=== PATIENT | female | born 1975 | race Caucasian/White ===

== ENCOUNTER → 2019-08-06 09:17 | Outpatient (BNVA) | payer MEDICAID, SELFPAY | PROVIDERS: Family Provider Nurse Practitioner; PCP Nurse Practitioner; Visit Provider Nurse Practitioner | DX: E88.81 Metabolic syndrome and other insulin resistance (principal); F41.8 Other specified anxiety disorders | CPT/HCPCS: 80053; 80061 ==

== ENCOUNTER → 2019-12-02 16:21 | Outpatient (BNVA) | payer MEDICAID, SELFPAY | PROVIDERS: Family Provider Nurse Practitioner; PCP Nurse Practitioner; Visit Provider Nurse Practitioner | DX: E88.81 Metabolic syndrome and other insulin resistance (principal); E66.01 Morbid (severe) obesity due to excess calories; E55.9 Vitamin D deficiency, unspecified | CPT/HCPCS: 80053; 80061; 81000; 84443; 85025 ==

== ENCOUNTER 2020-02-02 16:43 | Emergency (ER) | payer MEDICAID, SELFPAY ==
[2020-02-02 16:44] VITALS: BP 110/83; PULSE 79; RESP 18; TEMP 36.5; O2SAT 98; BMI 49.4
--- NOTE | 2020-02-02 16:44 | W.ED.GENADLT ---
HPI - General Adult General: Chief complaint: General Medical Stated complaint: POSSIBLE SEIZURE Time Seen by Provider: 02/02/20 16:44 Source: patient Mode of arrival: ambulatory Limitations: no limitations History of Present Illness: HPI narrative: Glenda is a 44-year-old female who was at home taking a shower when she was getting out and felt hot and lightheaded and then went down to the ground. She does not remember any preceding chest pain, shortness of breath, back pain or abdominal pain. The patient has a history of seizure disorder but it is been so long since she is had a seizure she does not take any medication. The patient was incontinent of stool but did not bite her tongue. She denies any injuries from that fall except for a dull headache. She denies any other complaints or concerns and feels back to normal at this time. Associated symptoms: Deny chest pain, dyspnea, headache(s), nausea, rash, palpitations, syncope or vomiting Review of Systems Const: Denies: fever(s) Eyes: Denies: change in vision ENMT: Denies: throat pain Card: Denies: chest pain, palpitations, syncope, pre-syncope or dyspnea on exertion Resp: Denies: dyspnea, productive cough or non-productive cough GI: Denies: abdominal pain, nausea, vomiting or diarrhea : Denies: flank pain, dysuria, urinary frequency or urinary urgency Musc: Denies: neck pain, back pain or extremity pain Skin/Breast: Denies: rash or pruritus Neuro: Denies: headache(s), numbness in extremities, weakness in extremities or dizziness [place]isai/Lymph: Denies: easy bruising or easy bleeding All/Imm: Denies: urticaria PFSH ED PFSH: Medical History Borderline intellectual disability Metabolic syndrome Morbid (severe) obesity due to excess calories Situational anxiety Vitamin D insufficiency Surgical History History of section 3 times 2000, 2005, 2018 History of cholecystectomy 2009 with scope History of tonsillectomy and adenoidectomy History of tubal ligation 2018 Family History Other Cancer Diabetes Social History Smoking and tobacco status: former smoker Second hand smoke exposure: Yes Smoking risk assessment/counseling performed?: No Alcohol intake: current Alcohol intake frequency: few times a month Desire information about alcohol rehabilitation?: No Counseling given: No Desire information about substance/drug rehabilitation?: No Counseling given: No Adopted: No Caregiver/support person: No Lives independently: Yes Household members: significant other Housing: Apartment Marital status: Legally Number of children: 1 service: No Current occupational status: unemployed and other Pets and animals: Yes History of recent travel: No Sexually active: Yes Current gender identity: Female Physical Exam Const: COMMON NORMALS: no acute distress, patient oriented x3, no limitations, healthy appearing and well nourished GENERAL APPEARANCE: cooperative, well kempt and well developed HENMT: COMMON NORMALS: normocephalic, atraumatic, external ears normal, EAC's normal and Normal external nose present HEAD & SCALP: normal to inspection, normocephalic and atraumatic FACE & SINUS: normal facial exam and face symmetric NOSE: Normal external nose present and Normal nares present EXTERNAL EAR: Yes external ears normal EXTERNAL AUDITORY CANAL: EAC's normal MOUTH: Normal oral and palatal mucosa present, lip normal and tongue normal Eye: COMMON NORMALS: Equal, round and reactive pupils present and conjunctivae normal GENERAL EYE: appearance normal, both eyes and all related structures ALIGNMENT: Yes alignment normal PERIORBITAL: periorbital findings normal EYELID: eyelids normal CONJUNCTIVA: Yes conjunctivae normal SCLERA: sclerae normal PUPIL: Yes Equal, round and reactive pupils present Neck/C-Spine: COMMON NORMALS: full ROM, no lymphadenopathy, supple, no meningeal signs and no JVD GENERAL: Yes normal visual inspection and Yes trachea midline Chest: COMMONS NORMALS: normal inspection of the chest and normal palpation of entire chest wall Resp: COMMON NORMALS: normal respiratory effort, No retractions and No use of accessory muscles EFFORT & INSPECTION: Yes able to speak in complete sentences and Yes symmetric chest movement AUSCULTATION: no crackles, no rales, no rhonchi and no wheezes Cardio: COMMON NORMALS: no JVD, regular rate, regular rhythm, S1 normal heart sound present and S2 normal heart sound present RATE: regular rate RHYTHM: regular rhythm HEART SOUNDS: S1 normal heart sound present, S2 normal heart sound present, no click, no gallops, no murmurs, no rubs and abnormal split S2 GI: COMMON NORMALS: Soft to palpation and No hepatosplenomegaly present PALPATION: Yes Soft to palpation, No Tenderness to palpation present (GI), No Guarding due to palpation present (GI), No Rigid due to palpation, Yes No hepatosplenomegaly present, No Hernia present, No Palpable mass present and No Pulsatile mass present RECTAL EXAM: other (Normal tone. Light brown stool. Hemoccult negative.) : COMMON NORMALS: Yes no CVA tenderness BLADDER/KIDNEY EXAM: Yes no CVA tenderness EXTERNAL FEMALE EXAM: No Hernia present Back/Pelvis: COMMON NORMALS: no CVA tenderness, thoracic and lumbar spine normal to inspection, no thoracic nor lumbar tenderness and thoraco-lumbar ROM normal Extremity: COMMON NORMALS: normal to inspection, full ROM, capillary refill normal, no joint enlargement, no clubbing, cyanosis or edema and no calf tenderness Neuro: COMMON NORMALS: patient oriented x3, CN's II-XII intact bilaterally, moves all extremities, no focal motor deficits and no sensory deficits noted MENINGEAL SIGNS: Yes no meningeal signs SPEECH: speech normal Psych: COMMON NORMALS: mental status grossly normal, Normal thought process present, cooperative, normal affect, speech normal and activity/motor behavior normal APPEARANCE: Yes well kempt SPEECH: Yes normal speech THOUGHT PROCESS: Normal thought process present Skin: COMMON NORMALS: no rashes or lesions noted, turgor normal, no jaundice, no petechiae and no mottling GENERAL SKIN EXAM: no rashes or lesions noted and turgor normal Course Vital Signs: Vital signs: Vital Signs Temperature 97.7 F 02/02/20 16:44 Pulse Rate 83 02/02/20 19:17 Respiratory Rate 20 H 02/02/20 19:17 Blood Pressure 120/77 02/02/20 17:36 Pulse Oximetry 97 02/02/20 19:17 MDM - General Adult MDM Narrative: Medical decision making narrative: Orthostatic vital signs -normal The patient has an anemia but she is aware of this and is being followed by her doctor. She is Hemoccult negative here and she is reporting one episode of diarrhea at home but no belly pain, no melena and no bright red blood in her stools recently. Her orthostatics are normal. Patient I think is more likely had a syncopal spell than seizure but with the history of seizures we will follow seizure precautions until she follows up with her doctor. I will start her on Keppra as she takes no medicines for seizures at this time and she also agrees to follow-up with Dr. Kovacs. Patient is asymptomatic here with a good blood pressure and has been able to ambulate without difficulty. Her EKG shows no sign of Pdvdf-Jhomcxktb-Ohipc syndrome, obstructive AV pathway, Brugada syndrome, bifascicular block, left ventricular hypertrophy or aortic stenosis, there is no evidence of hypertrophic obstructive cardiomyopathy, no evidence of epsilon waves or long or short QT syndrome. Patient agrees to return should her symptoms change or worsen otherwise she will follow-up with her regular doctor or return here if needed. Lab Data: Attestation: I reviewed the patient's lab results. Labs: Lab Results 02/02/20 02/02/20 02/02/20 Range/Units 17:09 17:09 17:09 WBC 9.5 (4.0-10.0) 10^3/ uL RBC 4.40 (4.1-5.3) 10^6/u L Hgb 8.5 L (11.5-15.3) g/dL Hct 32.9 L (37.0-47.0) % MCV 74.8 L (81-99) fL MCH 19.3 L (28.0-34.0) pg MCHC 25.8 L (30.0-36.0) g/dL RDW 19.7 H (12.1-15.1) % Plt Count 494 H (130-400) 10^3/c mm MPV 8.7 (7.4-10.4) fL Neut % (Auto) 70.2 % Lymph % (Auto) 20.5 % [place] % (Auto) 6.2 % Eos % (Auto) 2.1 % Baso % (Auto) 0.5 % Neut # (Auto) 6.69 (1.8-7.7) 10^3/u L Lymph # (Auto) 2.0 (0.8-4.8) 10^3/u L [place] # (Auto) 0.6 (0.2-0.9) 10^3/u L Eos # (Auto) 0.2 (0.0-0.8) 10^3/u L Baso # (Auto) 0.1 (0.0-0.1) 10^3/u L Nucleated RBC % (a uto) 0 % Nucleated RBCs # 0.0 /100WBC Sodium 135 L (136-145) mmol/L Potassium 3.7 (3.5-5.1) mmol/L Chloride 101 (98-107) mmol/L Carbon Dioxide 22 (22-29) mmol/L Anion Gap 15.7 (5-19) BUN 9 (6-20) mg/dL Creatinine 0.8 (0.5-0.9) mg/dL GFR Calculation 78.3 L (90-130) mL/min Glucose 100 (65-115) mg/dL Calculated Osmolal ity 276 L (285-295) mOsm/k g Calcium 9.0 (8.5-10.5) mg/dL Magnesium 2.2 (1.7-2.3) mg/dL Total Bilirubin 0.2 (0.15-1.2) mg/dL AST 13 (0-32) U/L ALT 11 (0-33) U/L Alkaline Phosphata se 72 (35-105) IU/L Troponin T Baselin e 6 (0-10) ng/L Troponin T 120 Min [place] (0-10) ng/L Delta Troponin T (0-10) ABS# Total Protein 7.7 (6.6-8.7) g/dL Albumin 3.7 (3.5-5.2) g/dL Globulin 4.0 (1.3-4.6) g/dL HCG, Qual (Negative) Urine Color (Yellow) Urine Appearance (CLEAR) Urine pH (5-7) Ur Specific Gravit y (1.005-1.030) Urine Protein (Negative) Urine Glucose (UA) (Normal) Urine Ketones (Negative) Urine Blood (Negative) Urine Nitrate (Negative) Urine Bilirubin (NEGATIVE) Urine Urobilinogen (Negative) mg/dL Ur Leukocyte [place] (Negative) Urine RBC (0-2) /hpf Urine WBC (0-5) /hpf Ur Squamous Epith Cells (0-5) Amorphous Sediment Urine Bacteria (NONE) Urine Mucus Ethyl Alcohol < 10 (0-10) mg/dL 02/02/20 02/02/20 02/02/20 Range/Units 17:09 18:50 19:10 WBC (4.0-10.0) 10^3/ uL RBC (4.1-5.3) 10^6/u L Hgb (11.5-15.3) g/dL Hct (37.0-47.0) % MCV (81-99) fL MCH (28.0-34.0) pg MCHC (30.0-36.0) g/dL RDW (12.1-15.1) % Plt Count (130-400) 10^3/c mm MPV (7.4-10.4) fL Neut % (Auto) % Lymph % (Auto) % [place] % (Auto) % Eos % (Auto) % Baso % (Auto) % Neut # (Auto) (1.8-7.7) 10^3/u L Lymph # (Auto) (0.8-4.8) 10^3/u L [place] # (Auto) (0.2-0.9) 10^3/u L Eos # (Auto) (0.0-0.8) 10^3/u L Baso # (Auto) (0.0-0.1) 10^3/u L Nucleated RBC % (a uto) % Nucleated RBCs # /100WBC Sodium (136-145) mmol/L Potassium (3.5-5.1) mmol/L Chloride (98-107) mmol/L Carbon Dioxide (22-29) mmol/L Anion Gap (5-19) BUN (6-20) mg/dL Creatinine (0.5-0.9) mg/dL GFR Calculation (90-130) mL/min Glucose (65-115) mg/dL Calculated Osmolal ity (285-295) mOsm/k g Calcium (8.5-10.5) mg/dL Magnesium (1.7-2.3) mg/dL Total Bilirubin (0.15-1.2) mg/dL AST (0-32) U/L ALT (0-33) U/L Alkaline Phosphata se (35-105) IU/L Troponin T Baselin e (0-10) ng/L Troponin T 120 Min [place] 7.47 (0-10) ng/L Delta Troponin T 1.47 (0-10) ABS# Total Protein (6.6-8.7) g/dL Albumin (3.5-5.2) g/dL Globulin (1.3-4.6) g/dL HCG, Qual Negative (Negative) Urine Color Yellow (Yellow) Urine Appearance Clear (CLEAR) Urine pH 5 (5-7) Ur Specific Gravit y 1.015 (1.005-1.030) Urine Protein Neg (Negative) Urine Glucose (UA) Norm (Normal) Urine Ketones Negative (Negative) Urine Blood Neg (Negative) Urine Nitrate Negative (Negative) Urine Bilirubin Neg (NEGATIVE) Urine Urobilinogen Neg (Negative) mg/dL Ur Leukocyte [place] Negative (Negative) Urine RBC None (0-2) /hpf Urine WBC 0-4 H (0-5) /hpf Ur Squamous Epith Cells 25-40 H (0-5) Amorphous Sediment Not Reportable Urine Bacteria 1+ H (NONE) Urine Mucus 2+ Ethyl Alcohol (0-10) mg/dL Imaging Data^: CT Head: Radiologist's impression: [place] [address] CT Scan Report Signed Patient: Glenda Maravilla Unit #: [id number] : 1975 Age/Sex: 44 / F ADM Date: 02/02/20 Loc: ER Room/Bed: Attending Dr: Ordering Provider/Ordering MD: Kimberly De La Cruz DO Date of Service: 02/02/20 Procedure(s): CT head wo con* [id number] Accession Number(s): [id number] Report Number: [id number] PROCEDURE INFORMATION: Exam: CT Head Without Contrast Exam date and time: 02/02/2020 5:49 PM Age: 44 years old Clinical indication: Condition or disease; Convulsions or seizures; Prior surgery; Additional info: Fall/injury TECHNIQUE: Imaging protocol: Computed tomography of the head without contrast. Radiation optimization: All CT scans at this facility use at least one of these dose optimization techniques: automated exposure control; mA and/or kV adjustment per patient size (includes targeted exams where dose is matched to clinical indication); or iterative reconstruction. COMPARISON: CT head wo con* [id number] 07/29/2014 3:20 PM RADIATION DOSE METRICS: Total DLP (mGy-cm): 875.76 FINDINGS: Brain: There is volume loss and periventricular low density compatible with chronic small vessel disease changes. There is no acute hemorrhage, edema or mass effect. There is unchanged encephalomalacia left frontal lobe and left temporal lobes. Ventricles: Normal. No ventriculomegaly. Bones/joints: Unremarkable. No acute fracture. Sinuses: Visualized sinuses are unremarkable. No fluid levels. Mastoid air cells: Visualized mastoid air cells are well aerated. Soft tissues: Unremarkable. CT/CT head wo con* [id number] IMPRESSION: No acute intracranial abnormality. Unchanged exam. Radiation Dose CTDIVOL = (mGy): DLP = 875.76 (mGy-cm) Dictated By: Bettye Chery Signed By: Bettye Chery Signed Date/Time: 02/02/201827 DD/ 25 CXR: My impression: No acute cardiopulmonary findings. EKG Data^: EKG 1: Attestation: I personally reviewed and interpreted this EKG as follows: EKG interpretation date: 02/02/20 EKG interpretation time: 18:51 Interpretation: Normal sinus rhythm at 72 beats a minute, no acute ST-T wave changes. No blocks, normal intervals. Computer generated interpretation: Head CT 02/02/20 17:47 IMPRESSION: No acute intracranial abnormality. Unchanged exam. Radiation Dose CTDIVOL = (mGy): DLP = 875.76 (mGy-cm) Discharge Plan Discharge Patient Disposition: Home Clinical Impression: Seizure Syncope Qualifiers: Syncope type: unspecified Qualified Code(s): R55 - Syncope and collapse Diarrhea Qualifiers: Diarrhea type: unspecified type Qualified Code(s): R19.7 - Diarrhea, unspecified Condition: Stable Prescriptions: New dicyclomine 20 mg tablet 20 mg PO TID PRN (Reason: diarrhea) Qty: 10 RF: 0 Keppra 500 mg tablet 500 mg PO BID Qty: 30 RF: 0 No Action magnesium oxide 400 mg magnesium capsule 400 mg PO DAILY RF: 0 furosemide [Lasix] 20 mg tablet 20 mg PO QAM Qty: 30 RF: 5 metformin 500 mg tablet extended release 24hr 500 mg PO BID Qty: 60 RF: 5 cetirizine [Zyrtec] 10 mg tablet 10 mg PO DAILY Qty: 30 RF: 2 Adult Multivitamin (w-lutein) 200-137.5 mcg Tablet,Chewable 1 tab PO BID RF: 0 Zocor 20 mg tablet 20 mg PO DAILY RF: 0 fluoxetine 20 mg capsule 20 mg PO DAILY RF: 0 Discharge Orders: Discharge Order (Routine); Ordered 02/02/20 Ordered By: Kimberly De La Cruz Referrals: Vianney Kovacs MD [Physician] - Jennifer Perdomo, G[facility]arina [Primary Care Provider] - 1-3 days Discharge Diet: Advance as tolerated Discharge Activity: Increase activity as tolerated Patient Instructions: Syncope (ED), Acute Diarrhea (ED), Recurrent Seizures Adult (ED) Activity Restrictions/Additional Instructions: Please return to the ER immediately for any of the signs or symptoms listed on your discharge instruction sheets, worsening/changing of your symptoms, you are not getting better as quickly as expected, or for ANY other cause or concerns. If your diarrhea returns, you develop blood in her stools, fever, you pass out again, you have another seizure or have any other concerns please return to the ER immediately for recheck. Be certain to follow-up with your doctor as soon as possible as well as Dr. Kovacs. No driving, no working at heights, no tub baths, no swimming alone or anything else that would put you at risk should you have another seizure. 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
--- NOTE | 2020-02-02 16:48 | XRR_ITS ---
PROCEDURE INFORMATION: Exam: XR Chest, 1 View Exam date and time: 02/02/2020 5:07 PM Age: 44 years old Clinical indication: Other: Light-headed; Hot; Patient HX: Got light-headed and hot this morning and fell. ; Additional info: Fall TECHNIQUE: Imaging protocol: XR of the chest Views: 1 view. COMPARISON: CR Chest 2 views* [id number] 07/29/2014 3:28 PM FINDINGS: Lungs: No lung consolidation or pulmonary edema. Pleural space: No pleural effusion or pneumothorax. Heart/Mediastinum: The cardiac silhouette is not enlarged. The mediastinal contours are normal. Bones/joints: No acute osseous abnormality. XR/XR chest 1V portable [id number] IMPRESSION: No acute abnormality.
[2020-02-02] MEDS: sodium chloride 0.9% 1,000 ML 999 ML IV (17:22)
[2020-02-02 17:23] VITALS: BP 119/73; PULSE 75; RESP 14; O2SAT 96
[2020-02-02 17:36] VITALS: BP 112/91; BP 117/76; BP 120/77; PULSE 76; PULSE 89
[2020-02-02 17:37] LABS: HCG, Serum Qual Negative (Negative)
[2020-02-02 17:42] LABS: Basophils # 0.1 10^3/uL (0.0-0.1); Basophils % 0.5 %; Eosinophils # 0.2 10^3/uL (0.0-0.8); Eosinophils % 2.1 %; Hematocrit 32.9 % (37.0-47.0); Hemoglobin 8.5 g/dL (11.5-15.3); Lymphocytes % 20.5 %; Mean Corpuscular HGB Conc 25.8 g/dL (30.0-36.0); Mean Corpuscular Hemoglobin 19.3 pg (28.0-34.0); Mean Corpuscular Volume 74.8 fL (81-99); Mean Platelet Volume 8.7 fL (7.4-10.4); Monocytes # 0.6 10^3/uL (0.2-0.9); Monocytes % 6.2 %; Neutrophils # 6.69 10^3/uL (1.8-7.7); Neutrophils % 70.2 %; Nucleated Red Blood Cells % 0 %; Platelet Count 494 10^3/cmm (130-400); Red Cell Distribution Width 19.7 % (12.1-15.1); White Blood Count 9.5 10^3/uL (4.0-10.0)
[2020-02-02 17:46] LABS: Alanine Aminotransferase 11 U/L (0-33); Albumin Level 3.7 g/dL (3.5-5.2); Alkaline Phosphatase 72 IU/L (35-105); Anion Gap 15.7 (5-19); Aspartate Amino Transferase 13 U/L (0-32); Blood Urea Nitrogen 9 mg/dL (6-20); Carbon Dioxide 22 mmol/L (22-29); Chloride 101 mmol/L (98-107); Glomerular Filtration Rate 78.3 mL/min (90-130); Glucose 100 mg/dL (65-115); Magnesium 2.2 mg/dL (1.7-2.3); Osmolality Calculated 276 mOsm/kg (285-295); Potassium 3.7 mmol/L (3.5-5.1); Sodium 135 mmol/L (136-145); Total Bilirubin 0.2 mg/dL (0.15-1.2); Total Protein 7.7 g/dL (6.6-8.7)
--- NOTE | 2020-02-02 17:47 | CTR_ITS ---
PROCEDURE INFORMATION: Exam: CT Head Without Contrast Exam date and time: 02/02/2020 5:49 PM Age: 44 years old Clinical indication: Condition or disease; Convulsions or seizures; Prior surgery; Additional info: Fall/injury TECHNIQUE: Imaging protocol: Computed tomography of the head without contrast. Radiation optimization: All CT scans at this facility use at least one of these dose optimization techniques: automated exposure control; mA and/or kV adjustment per patient size (includes targeted exams where dose is matched to clinical indication); or iterative reconstruction. COMPARISON: CT head wo con* [id number] 07/29/2014 3:20 PM RADIATION DOSE METRICS: Total DLP (mGy-cm): 875.76 FINDINGS: Brain: There is volume loss and periventricular low density compatible with chronic small vessel disease changes. There is no acute hemorrhage, edema or mass effect. There is unchanged encephalomalacia left frontal lobe and left temporal lobes. Ventricles: Normal. No ventriculomegaly. Bones/joints: Unremarkable. No acute fracture. Sinuses: Visualized sinuses are unremarkable. No fluid levels. Mastoid air cells: Visualized mastoid air cells are well aerated. Soft tissues: Unremarkable. CT/CT head wo con* [id number] IMPRESSION: No acute intracranial abnormality. Unchanged exam. Radiation Dose CTDIVOL = (mGy): DLP = 875.76 (mGy-cm)
[2020-02-02 17:49] LABS: Troponin(5th) Baseline 6 ng/L (0-10)
[2020-02-02 17:55] LABS: Alcohol Level < 10 mg/dL (0-10)
[2020-02-02 19:17] VITALS: PULSE 83; RESP 20; O2SAT 97
[2020-02-02 19:30] LABS: Add Urine Culture? No; Bacteria Urine 1+; Bilirubin Urine Neg (NEGATIVE); Blood Urine Neg (Negative); Glucose Urine UA Norm (Normal); Ketones Urine Negative (Negative); Leukocyte Esterase Urine Negative (Negative); Mucus Urine 2+; Nitrate Urine Negative (Negative); Protein Urine Neg (Negative); Specific Gravity, Urine 1.015 (1.005-1.030); Squamous Epithelial Cell Urine 25-40 (0-5); Urine Appearance Clear (CLEAR); Urine Color Yellow (Yellow); Urobilinogen Urine Neg (Negative); WBC Urine 0-4 /hpf (0-5); pH Urine 5 (5-7)
[2020-02-02 19:40] LABS: Troponin 5 2HR 7.47 ng/L (0-10); Troponin 5 2HR Delta 1.47 ABS# (0-10)
[2020-02-02] MEDS: levETIRAcetam 500 mg Tablet PO (20:07)
[2020-02-02] MEDS: dicyclomine 10 mg Capsule PO (20:07)
[2020-02-02 20:15] VITALS: BP 125/81; PULSE 77; RESP 20; O2SAT 98
--- NOTE | 2020-02-02 22:49 | ECG_ITS ---
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 Measurements Intervals [place] Rate: 72 P: 35 CT: 126 QRS: 16 QRSD: 98 T: 18 QT: 424 QTc: 465 Interpretive Statements SINUS RHYTHM No previous ECG available for comparison Electronically Signed On 02-02-2020 21:34:15 CDT by Susan Samson M.D. [id number]
== END 2020-02-02 20:16 | disposition home or self-care (01) ==
PROVIDERS: Emergency Provider Emergency Medicine; PCP Nurse Practitioner
DX: R55 Syncope and collapse (principal); R56.9 Unspecified convulsions; R19.7 Diarrhea, unspecified; Z87.891 Personal history of nicotine dependence
CPT/HCPCS: 12345; 36415; 70450; 71045; 80053; 80307; 81001; 83735; 84484; 84703; 85025; 93005; 96360; 96361; 99284; J7030

== ENCOUNTER → 2020-02-09 12:17 | Outpatient (BNVA) | payer MEDICAID, SELFPAY | PROVIDERS: PCP Nurse Practitioner; Visit Provider Nurse Practitioner | DX: D64.9 Anemia, unspecified (principal); E88.81 Metabolic syndrome and other insulin resistance; R41.83 Borderline intellectual functioning; F17.211 Nicotine dependence, cigarettes, in remission | CPT/HCPCS: 82607; 82728; 82746; 83540; 84443 ==

== ENCOUNTER → 2020-03-04 11:57 | Outpatient (BNVA) | payer MEDICAID, SELFPAY | PROVIDERS: PCP Nurse Practitioner; Visit Provider Nurse Practitioner | DX: E88.81 Metabolic syndrome and other insulin resistance (principal); D50.9 Iron deficiency anemia, unspecified; E66.01 Morbid (severe) obesity due to excess calories | CPT/HCPCS: 82270 ==

== ENCOUNTER → 2020-03-17 11:40 | Outpatient (BNVA) | payer MEDICAID, SELFPAY | PROVIDERS: PCP Nurse Practitioner; Visit Provider Obstetrics & Gynecology | DX: D50.0 Iron deficiency anemia secondary to blood loss (chronic) (principal); N92.0 Excessive and frequent menstruation with regular cycle | CPT/HCPCS: 85027 ==

== ENCOUNTER → 2020-03-31 14:05 | Outpatient (BNVA) | payer MEDICAID, SELFPAY | PROVIDERS: PCP Nurse Practitioner; Visit Provider Obstetrics & Gynecology | DX: N85.2 Hypertrophy of uterus (principal) | CPT/HCPCS: 76830; 88305 ==

== ENCOUNTER 2020-04-16 09:12 | Outpatient (CLI) | payer MEDICAID, SELFPAY ==
--- NOTE | 2020-04-16 09:21 | MM_ITS ---
WS: [id number] BILATERAL SCREENING DIGITAL MAMMOGRAM WITH CAD HISTORY: SCREENING COMPARISON: None available. Bilateral CC and MLO views submitted. Computer aided detection analyzed. Breast composition: There are scattered areas of fibroglandular density. No suspicious masses, microc alcifications or architectural distortion. Benign scattered calcifications. MM/[place] [id number] IMPRESSION: BI-RADS: 2-Benign FOLLOW UP: 1 Year Follow-up
== END 2020-04-16 09:13 | disposition home or self-care (01) ==
LOC: RADSHAW 09:19
PROVIDERS: PCP Nurse Practitioner Family; Visit Provider Nurse Practitioner Family
DX: Z12.31 Encounter for screening mammogram for malignant neoplasm of breast (principal)
CPT/HCPCS: 77067

== ENCOUNTER 2021-01-18 19:57 | Emergency (ER) | payer MEDICAID, SELFPAY ==
[2021-01-18 20:10] VITALS: BP 138/78; PULSE 81; RESP 18; TEMP 36.3; O2SAT 96; BMI 47.5
--- NOTE | 2021-01-18 20:17 | XRR_ITS ---
PROCEDURE INFORMATION: Exam: XR Right Wrist Exam date and time: 01/18/2021 8:17 PM Age: 45 years old Clinical indication: Patient HX: Fall today, right wrist pain TECHNIQUE: Imaging protocol: XR Right wrist. Views: 3 or more views. COMPARISON: No relevant prior studies available. FINDINGS: Bones/joints: Normal. Soft tissues: Normal. XR/XR wrist RT min 3V* [id number] IMPRESSION: No acute findings.
--- NOTE | 2021-01-18 20:29 | W.ED.EXTPRO ---
HPI - Extremity Problem General: Chief complaint: Extremity Injury, Upper Stated complaint: Rt Wrist Swollen Cant Move Fingers Time Seen by Provider: 01/18/21 20:16 Source: patient Mode of arrival: ambulatory Limitations: no limitations History of Present Illness: HPI Narrative: 55-year-old female states she fell this morning and landed on her right wrist. States she has had right wrist pain and swelling since then. States pain is a 6 out of 10. Denies any other injuries. States pain is worse with movement improved with rest. Associated symptoms: Deny chest pain, fever(s) or rash Review of Systems Const: Denies: fever(s), chills, body aches or change in appetite Eyes: Denies: blurry vision or eye discomfort ENMT: Denies: throat pain or dental pain Card: Denies: chest pain Resp: Denies: dyspnea GI: Denies: abdominal pain, nausea, vomiting or diarrhea : Denies: dysuria Musc: Reports: extremity pain and joint pain Skin/Breast: Denies: rash Neuro: Denies: headache(s) Psych: Denies: depression Abisai/Lymph: Denies: easy bruising All/Imm: Denies: urticaria PFSH ED PFSH: Medical History (Updated 01/18/21 @ 21:15 by Norma Lux MD) Borderline intellectual disability History of gestational diabetes Hyperlipidemia Metabolic syndrome Moderate episode of recurrent major depressive disorder Morbid (severe) obesity due to excess calories Situational anxiety Vitamin D insufficiency Surgical History H/O left wrist surgery History of ankle surgery (07/30/14) Open reduction and internal fixation left bimalleolar ankle fracture. Performed by Dr. Turner at [facility] in [place], [place] History of cholecystectomy (~2009) Laparoscopic History of tonsillectomy and adenoidectomy History of tubal ligation (05/27/18) Performed at time of section. By Dr. Torres in [place], [place] S/P foot surgery, right (~1987) S/P primary low transverse (~1999) S/P repeat low transverse (~2004) S/P repeat low transverse (05/27/18) with BTL. Performed by Dr. Torres at [facility] in [place], [place] Family History Grandmother Hypertension Maternal Father Diabetes Mother Breast cancer Social History Smoking and tobacco status: former smoker Alcohol intake: current Alcohol intake frequency: few times a month Female Reproductive History: Date of last menstrual period: 02/10/20 Physical Exam Const: COMMON NORMALS: no acute distress, patient oriented x3 and healthy appearing HENMT: COMMON NORMALS: normocephalic and atraumatic HEAD & SCALP: normocephalic and atraumatic Eye: COMMON NORMALS: Equal, round and reactive pupils present and EOMs intact bilaterally PUPIL: Yes Equal, round and reactive pupils present Neck/C-Spine: COMMON NORMALS: full ROM and supple Chest: COMMONS NORMALS: normal inspection of the chest and normal palpation of entire chest wall Resp: COMMON NORMALS: normal respiratory effort, No retractions, No use of accessory muscles and clear to auscultation bilaterally AUSCULTATION: clear to auscultation bilaterally Cardio: COMMON NORMALS: regular rate, regular rhythm and No murmurs present (Cardio) RATE: regular rate RHYTHM: regular rhythm GI: COMMON NORMALS: Normal to inspection, nondistended, normoactive bowel sounds present, Soft to palpation, non-tender and no masses PALPATION: Yes Soft to palpation Extremity: NARRATIVE EXTREMITY EXAM: Tenderness over right wrist with no obvious deformity patient able make a fist. Neuro: COMMON NORMALS: patient oriented x3, moves all extremities and no focal motor deficits Psych: COMMON NORMALS: mental status grossly normal, Normal thought process present and cooperative THOUGHT PROCESS: Normal thought process present Skin: COMMON NORMALS: no rashes or lesions noted and no wounds GENERAL SKIN EXAM: no rashes or lesions noted Course Vital Signs: Vital signs: Vital Signs Temperature 97.3 F L 01/18/21 20:10 Pulse Rate 81 01/18/21 20:10 Respiratory Rate 18 01/18/21 20:10 Blood Pressure 138/78 01/18/21 20:10 Pulse Oximetry 96 01/18/21 20:10 MDM - Extremity (Nontraumatic) MDM Narrative: Medical decision making narrative: Patient presents here with wrist sprain from a fall. Her x-ray here is negative. Patient placed in Josesito wrap and is stable for discharge. She is to follow-up PCP and return if worsening Imaging Data^: xr right wrist: Attestation: I personally reviewed and interpreted this imaging study as follows: My impression: No acute abnormality Discharge Plan Discharge Patient Disposition: Home Clinical Impression: Sprain and strain of wrist Condition: Stable Prescriptions: New Naprosyn 500 mg tablet 500 mg PO BID PRN (Reason: pain) Qty: 20 RF: 0 No Action (DME) pen needle, diabetic 33 gauge x 5/32 needle See Rx Instructions .ROUTE .MEDSUPPLY Qty: 100 RF: 5 magnesium oxide 400 mg magnesium capsule 400 mg PO DAILY RF: 0 furosemide [Lasix] 20 mg tablet 20 mg PO QAM Qty: 30 RF: 5 cetirizine [Zyrtec] 10 mg tablet 10 mg PO DAILY Qty: 30 RF: 2 Victoza 2-Josue 0.6 mg/0.1 mL (18 mg/3 mL) pen injector 0.6 mg SUBCUT DAILY Qty: 6 RF: 2 Zocor 40 mg tablet 40 mg PO DAILY Qty: 30 RF: 2 norethindrone-e.estradiol-iron [Junel FE 1.5/30 (28)] 1.5 mg-30 mcg (21)/75 mg (7) tablet See Rx Instructions .ROUTE .COMPLEX Qty: 28 RF: 12 Adult Multivitamin (w-lutein) 200-137.5 mcg Tablet,Chewable 1 tab PO BID RF: 0 fluoxetine 20 mg capsule 20 mg PO DAILY RF: 0 Discharge Orders: Discharge ED (Routine); Ordered 01/18/21 Ordered By: Norma Lux Referrals: Sylwia Abraham FNP [Primary Care Provider] - 1-3 days Discharge Diet: Advance as tolerated Discharge Activity: Resume usual activity Patient Instructions: Wrist Sprain (ED) Coding Level of Care Code ED Home Health Registered Nurse for Jose Davidg Fwd Exam Comprehensive
[2021-01-18] MEDS: HYDROcodone-acetaminophen 5-325 mg Tablet 1 TAB PO (20:32)
[2021-01-18 21:41] VITALS: BP 128/77; PULSE 73; RESP 18; TEMP 36.4; O2SAT 97
== END 2021-01-18 21:44 | disposition home or self-care (01) ==
PROVIDERS: Emergency Provider Emergency Medicine; PCP Nurse Practitioner Family
DX: S63.501A Unspecified sprain of right wrist, initial encounter (principal); S66.911A Strain of unspecified muscle, fascia and tendon at wrist and hand level, right hand, initial encounter; E78.5 Hyperlipidemia, unspecified; Z87.891 Personal history of nicotine dependence; W19.XXXA Unspecified fall, initial encounter
CPT/HCPCS: 73110; 99283

== ENCOUNTER 2021-07-07 08:31 | Emergency (ER) | payer OTHER, SELFPAY ==
--- NOTE | 2021-07-07 08:41 | ED_ITS ---
HPI - Fall General: Chief Complaint: Fall Stated Complaint: PAIN IN BOTH KNEES/FALL Time Seen by Provider: 07/07/21 08:32 History of Present Illness: HPI Narrative: 45-year-old female who had come to the hospital to get a swallow test done her had completed the testing and was leaving the building when she stumbled on a carpet just outside the door of the surgery services entrance. She fell on her knees caught her self on her hands and knees complaining of bilateral knee pain did not strike her head did not lose consciousness no other injuries she denies any injuries to her wrist or arms. MD complaint: fall Onset (ago): minute(s) Fall from: standing Fall witnessed: yes, by family Place fall occurred: other (Hospital) Loss of consciousness: None Prolonged down time: no Symptoms prior to fall: none Context: tripped/slipped (Tripped on a carpet) Location of injury - extremities: Bilateral: knee Severity: mild Associated symptoms-after fall: Denies abdominal pain, chest pain, confusion, difficulty walking, headache(s), hematuria, lightheadedness, neck pain, numbness, short of breath, vertigo or weakness Review of Systems Const: Denies: fever(s), chills, body aches, change in appetite, fatigue or malaise ENMT: Denies: throat pain, ear or mastoid pain, nasal discharge or nasal congestion Card: Denies: chest pain or lightheadedness Resp: Denies: dyspnea, productive cough or non-productive cough GI: Denies: abdominal pain : Denies: hematuria Musc: Denies: neck pain Skin/Breast: Denies: rash or pruritus Neuro: Denies: headache(s), difficulty walking, vertigo or confusion PFSH ED PFSH: Medical History (Updated 07/07/21 @ 09:01 by Ray Leon DO) Borderline intellectual disability History of gestational diabetes Hyperlipidemia Metabolic syndrome Moderate episode of recurrent major depressive disorder Morbid (severe) obesity due to excess calories Situational anxiety Vitamin D insufficiency Surgical History H/O left wrist surgery History of ankle surgery (07/30/14) Open reduction and internal fixation left bimalleolar ankle fracture. Performed by Dr. Turner at [facility] in [place], [place] History of cholecystectomy (~2009) Laparoscopic History of tonsillectomy and adenoidectomy History of tubal ligation (05/27/18) Performed at time of section. By Dr. Torres in [place], [place] S/P foot surgery, right (~1987) S/P primary low transverse (~1999) S/P repeat low transverse (~2004) S/P repeat low transverse (05/27/18) with BTL. Performed by Dr. Torres at [facility] in [place], [place] Family History Grandmother Hypertension Maternal Father Diabetes Mother Breast cancer Social History Smoking and tobacco status: former smoker Alcohol intake: current Alcohol intake frequency: few times a month Female Reproductive History: Date of last menstrual period: 02/10/20 Physical Exam Const: COMMON NORMALS: no acute distress GENERAL APPEARANCE: cooperative and comfortable ORIENTATION/CONSCIOUSNESS: Yes awake, Yes oriented to person, Yes oriented to place and Yes oriented to time HENMT: COMMON NORMALS: normocephalic, atraumatic and hearing grossly normal bilaterally HEAD & SCALP: normocephalic and atraumatic Neck/C-Spine: COMMON NORMALS: full ROM, no lymphadenopathy, supple and no JVD Resp: COMMON NORMALS: normal respiratory effort, No retractions, No use of accessory muscles and clear to auscultation bilaterally AUSCULTATION: clear to auscultation bilaterally Cardio: COMMON NORMALS: no JVD, regular rate, regular rhythm and No murmurs present (Cardio) RATE: regular rate RHYTHM: regular rhythm GI: COMMON NORMALS: Soft to palpation and No hepatosplenomegaly present AUSCULTATION: Yes normoactive bowel sounds PALPATION: Yes Soft to palpation, No Tenderness to palpation present (GI), No Guarding due to palpation present (GI) and Yes No hepatosplenomegaly present Extremity: COMMON NORMALS: normal to inspection, capillary refill normal, no clubbing, cyanosis or edema, no calf tenderness and no pedal edema OTHER: Full range of motion in all extremities at evidence of crepitus deformity or pain with passive motion Neuro: SENSORIUM/ORIENTATION: Yes oriented to person, Yes oriented to place and Yes oriented to time Skin: COMMON NORMALS: no rashes or lesions noted GENERAL SKIN EXAM: no rashes or lesions noted Course Vital Signs: Vital signs: Vital Signs Pulse Rate 101 H 07/07/21 08:43 Respiratory Rate 17 07/07/21 08:43 Blood Pressure 140/91 07/07/21 08:43 Pulse Oximetry 97 07/07/21 08:43 MDM - Fall MDM Narrative: Medical decision making narrative: X-rays unremarkable for fracture some mild arthritic changes. Discharge home can use Naprosyn she is previously been prescribed as needed ice as needed follow-up as needed Discharge Plan Discharge Patient Disposition: Home Clinical Impression: Bilateral knee pain Fall Qualifiers: Encounter type: initial encounter Qualified Code(s): W19.XXXA - Unspecified fall, initial encounter Condition: Stable Prescriptions: No Action (DME) pen needle, diabetic 33 gauge x 5/32 needle See Rx Instructions .ROUTE .MEDSUPPLY Qty: 100 RF: 5 magnesium oxide 400 mg magnesium capsule 400 mg PO DAILY RF: 0 furosemide [Lasix] 20 mg tablet 20 mg PO QAM Qty: 30 RF: 5 cetirizine [Zyrtec] 10 mg tablet 10 mg PO DAILY Qty: 30 RF: 2 Victoza 2-Josue 0.6 mg/0.1 mL (18 mg/3 mL) pen injector 0.6 mg SUBCUT DAILY Qty: 6 RF: 2 Zocor 40 mg tablet 40 mg PO DAILY Qty: 30 RF: 2 norethindrone-e.estradiol-iron [Junel FE 1.5/30 (28)] 1.5 mg-30 mcg (21)/75 mg (7) tablet See Rx Instructions .ROUTE .COMPLEX Qty: 28 RF: 12 Adult Multivitamin (w-lutein) 200-137.5 mcg Tablet,Chewable 1 tab PO BID RF: 0 fluoxetine 20 mg capsule 20 mg PO DAILY RF: 0 Naprosyn 500 mg tablet 500 mg PO BID PRN (Reason: pain) Qty: 20 RF: 0 Discharge Orders: Discharge ED (Routine); Ordered 07/07/21 Ordered By: Ray Leon Referrals: Sylwia Abraham FNP [Primary Care Provider] - Discharge Diet: Usual diet Discharge Activity: Resume usual activity Patient Instructions: Opioid Safety Activity Restrictions/Additional Instructions: If any worsening or change symptoms return to the emergency room. Coding Level of Care Code ED Gastroenterology Physician for Orville Kingston
--- NOTE | 2021-07-07 08:42 | XR_ITS ---
WS: [id number] Left knee, 3 views, 07/07/2021 Clinical Data: fall/trauma Comparison: None. Findings: No fractures or dislocations are seen. The joint spaces are normal. The patella is intact. The soft t issues are unremarkable. 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 Kellgren-Romario Classification: grade 0 (none): definite absence of x-ray nano nges of osteoarthritis
--- NOTE | 2021-07-07 08:42 | XR_ITS ---
WS: [id number] Right knee, 3 views, 07/07/2021 Clinical Data: fall/trauma Comparison: None. Findings: No fractures or dislocations are seen. The joint spaces are normal. The patella is intact. The soft t issues are unremarkable. XR/XR knee RT 3V* [id number] Impression: Negative right knee. Kellgren-Romario Classification: grade 0 (none): definite absence of x-ray nano nges of osteoarthritis
[2021-07-07 08:43] VITALS: BP 140/91; PULSE 101; RESP 17; O2SAT 97; BMI 44.8
[2021-07-07 09:16] VITALS: BP 122/79; PULSE 93; RESP 16; O2SAT 96
--- NOTE | 2021-07-07 09:26 | PC.NURSE ---
Pt arrive via POV with jose f for husbands appointment, pt states she was walking out of the providers office and tripped ocver the rug, falling and landing on her knees. Pt repors a hx of falls, rates her pain 3/10. Pt denies pain any where else. Pt A/O, vss, pt resting comfortable in room.
== END 2021-07-07 09:42 | disposition home or self-care (01) ==
PROVIDERS: Emergency Provider Family Medicine; PCP Nurse Practitioner Family
DX: M25.562 Pain in left knee (principal); M25.561 Pain in right knee; E78.5 Hyperlipidemia, unspecified; Z87.891 Personal history of nicotine dependence; W18.09XA Striking against other object with subsequent fall, initial encounter; Y92.238 Other place in hospital as the place of occurrence of the external cause
CPT/HCPCS: 73562; 99282; 99291

== ENCOUNTER 2022-03-07 12:49 | Outpatient (CLI) | payer MEDICAID, SELFPAY ==
--- NOTE | 2022-03-07 13:07 | XR_ITS ---
WS: [id number] Exam: XR shoulder LT 1V [id number] Date/Time of Exam: 03/07/2022 1:11 PM Reason For Exam: L SHOULDER JOINT PAIN Single AP view of the left shoulder shows no fracture or dislocation. Normal soft tissues. XR/XR shoulder LT 1V [id number] IMPRESSION: 1. No fracture or other significant finding.
== END 2022-03-07 12:50 | disposition home or self-care (01) ==
LOC: RAD 12:55
PROVIDERS: PCP Nurse Practitioner Family; Visit Provider Nurse Practitioner Family
DX: M25.512 Pain in left shoulder (principal)
CPT/HCPCS: 73020

== ENCOUNTER 2022-05-18 14:49 | Outpatient (CLI) | payer MEDICAID, SELFPAY ==
--- NOTE | 2022-05-18 15:05 | MM_ITS ---
WS: [id number] BILATERAL 3D TOMOSYNTHESIS DIGITAL SCREENING MAMMOGRAPHY WITH CAD CLINICAL INFORMATION: SCREENING HISTORY: Screening mammogram. No current complaints. COMPARISON: April 16, 2020 TECHNIQUE: Bilateral CC and MLO views. FINDINGS: Scattered fibroglandular densities bilaterally. Dense asymmetric breast tissue upper outer LEFT breas t is stable. No suspicious focal mass, asymmetry, calcifications, or architectural distortion. No georgiana dence of malignancy. Scattered punctate calcifications. MM/[place] [id number] IMPRESSION: BI-RADS: 2-Benign FOLLOW UP: 1 Year Follow-up Recommend return to annual screening mammography.
== END 2022-05-18 14:50 | disposition home or self-care (01) ==
LOC: RAD 14:49
PROVIDERS: PCP Nurse Practitioner Family; Visit Provider Nurse Practitioner Family
DX: Z12.31 Encounter for screening mammogram for malignant neoplasm of breast (principal)
CPT/HCPCS: 77063; 77067

== ENCOUNTER 2022-05-31 08:43 | Outpatient (CLI) | payer MEDICAID, SELFPAY ==
--- NOTE | 2022-05-31 | ECG_ITS ---
[facility] Test Date: 2022-05-31 Pat Name: Glenda Maravilla Department: Room: Gender: Female X Ray Equipment Tester: Mckenzie Austin : 1975 Requested By: Sylwia Abraham Order Number: [id number] Beth MD: Manjula Barboza M.D. Interpretive Statements NAME OF STUDY: LEXISCAN SESTAMIBI STRESS TEST INDICATION: Dyspnea, PROCEDURE: At the baseline, the EKG revealed normal sinus rhythm with a normal ST Ts. The baseline heart was 61 bpm with a blood pressue of 112/82 mm of Hg Lexiscan was infused over a period of 20 seconds. A total of 0.4 milligrams of Lexiscan was infused. The stress phase was continued for a total of 5 minutes. Heart rate at the end of the stress phase was 86 bpm with a blood pressure 127/89 mm of Hg. The EKG at the peak infusion revealed no significant changes. Sestamibi was injected 20 seconds after the Lexiscan infusion. Heart rate at the end of the recovery phase was 82 bpm with a blood pressure of 130/89 mm of Hg. CONCLUSION: 1. No significant EKG changes with the LexiScan infusion 2. No LexiScan induced chest pain or cardiac arrhythmia 3. Normal blood pressure and heart rate response 4. Sestamibi/sestamibi perfusion scan pending; see separate report. Electronically Signed On 06-01-2022 12:26:41 HOSE CEMENTER by Manjula Barboza M.D. [email or web address]
--- NOTE | 2022-05-31 09:53 | NMCV_ITS ---
NM rosa elena perf SPECT r/s* [id number] Glenda Maravilla Age: 46 Gender: F : 1975 Exam Date: 05/31/2022 09:53 Ordering Phys: Sylwai Abraham DATABASE ENGINEER Technologist: SHANNAN Aranda Exam Location: [facility] Indications: SHORTNESS OF BREATH STRESS TEST [facility] IMAGE PROTOCOL Rest/Stress 1 Lexiscan Day Radiopharmaceutical Dose (mCi) Administration Site Administered by Rest: Tc-99m 8.2 IV SHANNAN Aranda Sestamibi Stress:Tc-99m 29.1 IV SHANNAN Richrads Sestamibi Rest: 31-May-2022 60 Discovery 630 Stress: 31-May-2022 30 Discovery 630 0.4mg Lexiscan. Images obtained in supine and prone position. SPECT RESULTS Technical Quality: Excellent Raw Data Analysis: Normal Image Corrections: No attenuation or motion correction applied Summed Stress Score: 7 Summed Rest Score: 5 Summed Difference Score: 2 PERFUSION FINDINGS Moderate area of moderately decreased tracer uptake in the basal and mid inferolateral, mid and apical inferior wall regions. Some reversibility was noted in the inferior wall. FUNCTIONAL RESULTS (calculated via Gated SPECT) Stress Image LV EF (%): 59 Stress EDV (mL):74 TID: 0.9 Stress ESV (mL):30 FUNCTIONAL FINDINGS: Segmental wall motion analysis revealing no gross wall motion abnormalities IMPRESSIONS 1. Myocardial perfusion imaging revealing moderate area of decreased tracer uptake in the inferior and inferolateral regions with some reversibility in the inferior region, suggesting myocardial scarring in the distribution of the right coronary artery/circumflex artery with some ischemia in the distribution of the right coronary artery. 2. Normal LV ejection fraction 59%. 3. LV wall motion analysis revealing no gross wall motion abnormalities. 4. Normal LV volume No similar previous studies are available for comparison Dr Manjula Barboza MD [facility] (Electronically Signed) Final Date: 31 May 2022 19:07 S
[2022-05-31] MEDS: regadenoson 0.4 Mg/5 ml Syringe IVP (11:05)
[2022-05-31 11:35] VITALS: BP 130/89; PULSE 83
== END 2022-05-31 08:44 | disposition home or self-care (01) ==
LOC: CDL 08:44
PROVIDERS: PCP Nurse Practitioner Family; Visit Provider Nurse Practitioner Family
DX: R06.02 Shortness of breath (principal)
CPT/HCPCS: 36415; 78452; 93017; 96374; A9500; J2785

== ENCOUNTER → 2022-06-05 09:16 | Outpatient (BNVA) | payer MEDICAID, SELFPAY | PROVIDERS: PCP Nurse Practitioner Family; Visit Provider Podiatrist Foot & Ankle Surgery | DX: M21.371 Foot drop, right foot (principal); M21.542 Acquired clubfoot, left foot; L84 Corns and callosities | CPT/HCPCS: 99204 ==

== ENCOUNTER → 2022-07-17 08:31 | Outpatient (BNVA) | payer MEDICAID, SELFPAY | PROVIDERS: PCP Nurse Practitioner Family; Visit Provider Podiatrist Foot & Ankle Surgery | DX: M21.371 Foot drop, right foot (principal); M21.542 Acquired clubfoot, left foot; L84 Corns and callosities | CPT/HCPCS: 99213 ==

== ENCOUNTER → 2022-07-25 12:30 | Outpatient (BNVA) | payer MEDICAID, SELFPAY | PROVIDERS: PCP Nurse Practitioner Family; Visit Provider Internal Medicine Cardiovascular Disease | DX: R06.02 Shortness of breath (principal); R07.9 Chest pain, unspecified; R94.39 Abnormal result of other cardiovascular function study; Z87.891 Personal history of nicotine dependence | CPT/HCPCS: 93005; 99204; Q3014 ==

== ENCOUNTER 2022-08-07 07:16 | Outpatient (CLI) | payer MEDICAID, SELFPAY ==
--- NOTE | 2022-08-07 07:15 | USCV_ITS ---
Glenda Maravilla Age: 46 Gender: F : 1975 Exam Date: 08/07/2022 08:00 Ordering Phys: Susan Samson MD ([email or web address]) Technologist: Exam Location: [facility] Indication: Shortness of breath, chest pain BP: 118 / 78 HR: 70 Rhythm: Sinus Technical Quality: Adequate MEASUREMENTS (Male / Female) Normal Values 2D ECHO LV Diastolic Diameter PLAX 4.6 cm 4.2 - 5.9 / 3.9 - 5.3 cm LV Systolic Diameter PLAX 3.5 cm IVS Diastolic Thickness 1.5 cm 0.6 - 1.0 / 0.6 - 0.9 cm IVS Systolic Thickness 1.6 cm LVPW Diastolic Thickness 1.4 cm 0.6 - 1.0 / 0.6 - 0.9 cm LVPW Systolic Thickness 1.6 cm LVOT Diameter 2.0 cm LV Ejection Fraction 2D Teich 47.1 % LA Diameter 4.1 cm Aorta at Sinotubular Diameter 2.8 cm IVC Diameter 1.5 cm M-MODE Aortic Annulus Diameter 3.7 cm LA Ao Ratio MM 1.3 MV E Point Septal Separation 1.3 cm DOPPLER AV Peak Velocity 147.0 cm/s LVOT Peak Velocity 108.0 cm/s AV Area Cont Eq vti 2.3 cm squared AV Area Cont Eq pk 2.4 cm squared MV Area PHT 5.0 cm squared Mitral E to A Ratio 1.1 MV E' Velocity 47.0 cm/s Mitral E to MV E' Ratio 7.9 Mitral E to LV E' Lateral Ratio 6.6 Mitral E to LV E' Septal Ratio 9.9 TR Peak Velocity 164.7 cm/s TR Peak Gradient 10.8 mmHg TV Peak E Velocity 89.0 cm/s Right Atrial Pressure 3.0 mmHg Pulmonary Artery Systolic Pressu 13.8 mmHg RV Acceleration Time 0.1 s FINDINGS Left Ventricle Normal left ventricular size, systolic function and wall thickness, with no regional wall motion abnormalities. Left ventricular ejection fraction is estimated at 65 %. Normal diastolic function. Right Ventricle Normal right ventricular size and systolic function. RVSP could not be calculated due to incomplete tricuspid regurgitation velocity profile. Right Atrium Normal right atrial size. Left Atrium Normal left atrial size. Mitral Valve Structurally normal mitral valve. No mitral valve stenosis. No mitral valve regurgitation. Aortic Valve Structurally normal trileaflet aortic valve. No aortic valve stenosis. No aortic valve regurgitation. Tricuspid Valve Structurally normal tricuspid valve. No tricuspid valve regurgitation. Pulmonic Valve Structurally normal pulmonic valve. No pulmonary valve stenosis. Trace pulmonary valve regurgitation. Pericardium No pericardial effusion. Aorta Normal size aortic root and proximal ascending aorta. IVC Normal IVC dimension with >50% respiratory change of the inferior vena cava. CONCLUSIONS 1.Normal left ventricular size, systolic function and wall thickness, with no regional wall motion abnormalities. Left ventricular ejection fraction is estimated at 65 %. Normal diastolic function. 2. No prior similar studies to compare. Susan Samson MD (Electronically Signed) Final Date: 07 August 2022 22:48 S
== END 2022-08-07 07:17 | disposition home or self-care (01) ==
PROVIDERS: PCP Nurse Practitioner Family; Visit Provider Internal Medicine Cardiovascular Disease
DX: R07.9 Chest pain, unspecified (principal); R06.02 Shortness of breath
CPT/HCPCS: 93306

== ENCOUNTER 2022-08-09 05:47 | Outpatient (CLI) | payer MEDICAID, SELFPAY ==
[2022-08-09] VITALS (13 sets, daily range): BP systolic 107–122; BP diastolic 60–93; PULSE 56–79; RESP 16–20; TEMP 36.6; O2SAT 93–99; BMI 46.3
--- NOTE | 2022-08-09 06:00 | XACV_ITS ---
Ht: 157 cm Wt: 115 kg BSA: 2.31 m2 Gender: Female : 1975 Any Known Allergies: Other Exam Priority: Routine Procedure(s): Procedure Description: Diagnostic procedure Procedure Description: Left Heart Catheterization Procedure Description: Left ventriculography Procedure Description: Coronary Angiography Diagnostic Cath Status: Elective Diagnostic Findings * INDICATION: Chest pain/abnormal stress test. * No significant disease noted in the Left Main, Left Anterior Descending, Right, or Circumflex coronary arteries. * Coronary angiography shows left dominance. Conclusions 1. No significant disease noted in the Left Main, Left Anterior Descending, Right, or Circumflex coronary arteries. 2. Normal left ventricular systolic function. Ejection fraction of 55%. Recommendations * Aggressive risk factor modification. * Outpatient cardiology follow up in 4 weeks. Interventional RX Recommendation: medical therapy and/or counseling Diagnostic RX Recommendation: medical therapy and/or counseling Anticoagulation: Heparin Ventriculography Ejection Fraction: 55.0 % Pressures Phase:Rest AO : / ( 0 ) @ 7:56:00 AM 97 / 82 ( 91 ) @ 8:03:00 AM 90 / 76 ( 84 ) @ 8:05:00 AM 122 / 79 ( 96 ) @ 8:11:00 AM 120 / 78 ( 94 ) @ 8:11:00 AM LV : 132 / / 23 @ 8:09:00 AM 137 / 0 / 23 @ 8:11:00 AM 137 / - / 23 @ 8:11:00 AM Valves Phase:DefaultPhase AV : 15.0 @ 8:16:25 AM 15.0 @ 8:16:25 AM AV Mean Gradient: 14.0 @ 8:16:25 AM Clinical Evaluation EBL: 5mL-10mL Procedural Details Procedure Consent Obtained. Admit Source: Out Patient. Current Diagnosis : Chest Pain. Pre-Procedure Time Out. Identified patient by full name and date of as verbalized by the patient/guarantor. Does the consent match the physician's order: Yes. Accurate & Complete Informed Consent: Yes. Inpatient/Outpatient History & Physical on Chart: Yes. If H&P is completed, is and addenduem needed: No; If yes, is the addendum complete: N/A. Visualize and Verify Site with Patient/Guarantor: N/A. Relevant Radiology Images available: N/A. The risks, benefits, and alternatives of sedation and/or procedure were discussed by physician. The patient agrees to continue. Procedure started. [facility] Clinical Fraility Score: 3: Managing Well. 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 Chest Pain Symptom Assessment: Atypical Angina. Cardiovascular Instability: No, stable. Correct patient, site and procedure confirmed by cath team. Current diagnosis: Chest Pain; Abnormal Stress test. PERRLA. 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 Lungs clear x 5 lobes. IV Site on Arrival: 20 gauge in the left forearm. IV Fluids: 0.9% NaCl at KVO. 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 Pre Procedural Pulses: bilateral radial was 3+. Pre Procedural Pulses: bilateral posterior tibial was 1+. Pre Procedural Pulses: bilateral dorsalis pedis was 2+. Oxygen started at 3liters/min via nasal canula. right groin was prepped with chloroprep then draped in the usual sterile fashion. right radial was prepped with chloroprep then draped in the usual sterile fashion. Baseline sample Acquired. HR: 64 BPM. Physician notified. Physician arrived. Physician scrubbed in. Immediate Pre-Procedure Time Out. Correct Patient: Yes; Correct Procedure: Yes; Correct Site: Yes; Correct Patient Position: Yes; Correct Supplies: Yes; Dried Flammable Prep: Yes; Blood Products Available: N/A;. Lidocaine 1% infiltrated to the right radial. Arterial access obtained. A 5 niuean TIG catheter in over wire. Multiple views taken of left coronary artery. Catheter redirected to the RCA. Multiple views taken of right coronary artery. Catheter removed over the wire. A 5 niuean Straight Pig catheter in over wire. EDP Sample taken: LV 132/1,23; HR: 72 BPM; SpO2: 96%. LV gram performed in OLEARY @ 10 mL/second for a total of 30 mL. Patient EF: Normal. EDP Sample taken: LV 137/-1,23; HR: 71 BPM; SpO2: 96%. Pullback taken: LV 137/-1,23; AO 122/79(96); Mean: 14mmHg, Peak to Peak: 15mmHg, SEP: 18sec/min; HR: 72 BPM; SpO2: 97%. Catheter removed out over the wire. Physician review of films. Physician scrubbed out. A TR Band was successful obtaining hemostatsis at the Right Radial artery insertion site. TR band placed. Hemostasis obtained. Post Procedure: Pulses reassessed and unchanged. PERRLA. 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 No VTE prophylaxis required. Contrast type used: Omnipaque 300 mg/mL, 150 mL bottle. [id number]. Post-op diagnosis: Non Obstuctive CAD. Medication waste: Lidocaine 2ml, Nitro 49.8 mg, Heparin 1000 units, Fentanyl 50 mcg. Complications: None. Total IV fluids: 26 mL. Fluoro: 3:04. Estimated blood loss: 5mL-10mL. Responsiveness - Normal response to verbal stimuli; alert and oriented, PERRLA. Airway - Unaffected, no intervention required; spontaneous ventilation. Circulation: W/N/L, pulses unchanged. Nausea/Vomiting: No. Procedure completed. Patient transferred by bed to CPRU. Vital chart was stopped. Access Site Site: Right Radial artery Sheath Size: 6 Fr Hemostasis Method: TR Band Hemostasis Success: Successful Procedure Medications Start: 7:54 AM Stop: 7:54 AM Medication: Versed Amount: 1 mg Route: I.V. Start: 7:54 AM Stop: 7:54 AM Medication: Fentanyl Amount: 50 mcg Route: I.V. Start: 8:01 AM Stop: 8:01 AM Medication: Nitrogylcerin Amount: 200 mcg Route: I.A. Start: 8:02 AM Stop: 8:02 AM Medication: Heparin Amount: 5000 units Route: I.V. Start: 8:04 AM Stop: 8:04 AM Medication: Versed Amount: 1 mg Route: I.V. I, the attending physician, have reviewed and verified all procedure medications. Yes, all medications given per verbal order History/Risk Factors Hypertension: No Dyslipidemia: Yes Peripheral Arterial Disease (PAD): No Myocardial Infarction (VA): No Obesity: Yes Renal Disease: No Tobacco Use: Former Prior Interventions PCI: No CABG: No Valve Surgery: No Report Signatures Finalized by Iftikhar Hammond MD on 08/13/2022 05:49 PM
[2022-08-09] MEDS: diphenhydrAMINE 50 mg Capsule PO (06:22)
[2022-08-09 06:42] LABS: Basophils % 0.5 %; Eosinophils # 0.2 10^3/uL (0.0-0.8); Eosinophils % 2.3 %; Hematocrit 43.1 % (37.0-47.0); Hemoglobin 13.4 g/dL (11.5-15.3); Lymphocytes # 2.2 10^3/uL (0.8-4.8); Lymphocytes % 25.6 %; Mean Corpuscular HGB Conc 31.1 g/dL (30.0-36.0); Mean Corpuscular Hemoglobin 27.1 pg (28.0-34.0); Mean Corpuscular Volume 87.2 fl (81-99); Mean Platelet Volume 8.4 fL (7.4-10.4); Monocytes # 0.5 10^3/uL (0.2-0.9); Monocytes % 5.8 %; Neutrophils # 5.65 10^3/uL (1.8-7.7); Neutrophils % 65.6 %; Nucleated Red Blood Cells % 0 %; Platelet Count 441 10^3/cmm (130-400); Red Blood Count 4.94 10^6/uL (4.1-5.3); Red Cell Distribution Width 15.6 % (12.1-15.1); White Blood Count 8.6 10^3/uL (4.0-10.0)
[2022-08-09 07:02] LABS: Anion Gap 14.2 (5-19); Blood Urea Nitrogen 9 mg/dL (6-20); Calcium 8.3 mg/dL (8.5-10.5); Carbon Dioxide 23 mmol/L (22-29); Chloride 103 mmol/L (98-107); Glomerular Filtration Rate 77.6 mL/min (90-130); Glucose 113 mg/dL (65-115); Osmolality Calculated 281 mOsm/kg (285-295); Potassium 4.2 mmol/L (3.5-5.1); Sodium 136 mmol/L (136-145)
--- NOTE | 2022-08-09 07:52 | P.HPUD_ITS ---
Surgery/Procedure H&P Update DATE OF PROCEDURE: August 09, 2022 DATE H&P PERFORMED: 07/25/22 H&P UPDATE INFORMATION: I have reviewed H&P completed within last 30 days, I have examined patient prior to procedure and No changes to prior documentation PREOP DIAGNOSIS: Chest pain/abnormal stress test PRIMARY INDICATION FOR PROCEDURE: Chest pain/abnormal stress test PLANNED PROCEDURE: Operation Date: 08/09/22 07:00 Proposed Procedures p [facility] w/wo 39848,R06.02,R94.39,R07.9(Left) - Iftikhar Hammond M.D Possible percutaneous coronary intervention PATIENT REASSESSED PRIOR TO SEDATION, WITH NO CHANGE NOTED: Yes PHYSICAL EXAM: alert, oriented x 3, clear to auscultation bilaterally and regular rate & rhythm AIRWAY EVAL/ANESTHESIA PLAN: normal airway, ASA III, Local Anesthesia, Risks, benefits & alternatives of sedation and/or procedure discussed and Patient agrees to continue as planned ADDITIONAL INFORMATION: Moderate sedation
--- NOTE | 2022-08-09 08:20 | SUR.PHASEII ---
Received the patient back from a diagnostic [facility] via wheelchair. Patient ambulated to the bed with her walker. A & O x3. compliance monitor placed and vital signs obtained. TR band intact to the right wrist. no bleeding or hematoma noted. palpable radial pulse. spouse remains at bedside. no other assessment changes noted from pre cath assessment.
--- NOTE | 2022-08-09 09:15 | SUR.PHASEII ---
Letting the air out of the TR band per protocol
== END 2022-08-09 05:48 | disposition home or self-care (01) ==
PROVIDERS: PCP Nurse Practitioner Family; Visit Provider Internal Medicine
DX: R07.9 Chest pain, unspecified (principal); R94.39 Abnormal result of other cardiovascular function study; E78.5 Hyperlipidemia, unspecified; E66.01 Morbid (severe) obesity due to excess calories; Z68.42 Body mass index [BMI] 45.0-49.9, adult; Z87.891 Personal history of nicotine dependence
CPT/HCPCS: 36415; 80048; 85025; 93458; 96361; 96365; 99152; 99153; C1769; C1887; C1894; J1644; J2250; J3010; J3490; J7030; Q0163; Q9967

== ENCOUNTER → 2022-08-17 13:09 | Outpatient (BNVA) | payer MEDICAID, SELFPAY | PROVIDERS: PCP Nurse Practitioner Family; Visit Provider Internal Medicine | DX: R06.02 Shortness of breath (principal); R07.9 Chest pain, unspecified; Z87.891 Personal history of nicotine dependence | CPT/HCPCS: 99213 ==

== ENCOUNTER → 2022-08-28 13:31 | Outpatient (BNVA) | payer MEDICAID, SELFPAY | PROVIDERS: PCP Nurse Practitioner Family; Visit Provider Podiatrist Foot & Ankle Surgery | DX: M21.542 Acquired clubfoot, left foot (principal); M21.371 Foot drop, right foot; L84 Corns and callosities | CPT/HCPCS: 99213 ==

== ENCOUNTER → 2022-11-06 12:53 | Outpatient (BNVA) | payer MEDICAID, SELFPAY | PROVIDERS: PCP Nurse Practitioner Family; Visit Provider Podiatrist Foot & Ankle Surgery | DX: M21.371 Foot drop, right foot (principal); M21.542 Acquired clubfoot, left foot; L84 Corns and callosities | CPT/HCPCS: 99213 ==

== ENCOUNTER → 2022-12-15 09:25 | Outpatient (BNVA) | payer MEDICAID, SELFPAY | PROVIDERS: PCP Nurse Practitioner Family; Visit Provider Podiatrist Foot & Ankle Surgery | DX: B35.3 Tinea pedis (principal); L84 Corns and callosities; M20.41 Other hammer toe(s) (acquired), right foot; M20.42 Other hammer toe(s) (acquired), left foot; M77.41 Metatarsalgia, right foot | CPT/HCPCS: 99214 ==

== ENCOUNTER → 2023-01-05 11:43 | Outpatient (BNVA) | payer MEDICAID, SELFPAY | PROVIDERS: PCP Nurse Practitioner Family; Visit Provider Podiatrist Foot & Ankle Surgery | DX: B35.3 Tinea pedis (principal) | CPT/HCPCS: 99213 ==

== ENCOUNTER → 2023-01-23 13:38 | Outpatient (BNVA) | payer MEDICAID, SELFPAY | PROVIDERS: PCP Nurse Practitioner Family; Visit Provider Internal Medicine Cardiovascular Disease | DX: R07.9 Chest pain, unspecified (principal); E78.5 Hyperlipidemia, unspecified; E66.01 Morbid (severe) obesity due to excess calories; Z68.42 Body mass index [BMI] 45.0-49.9, adult; Z87.891 Personal history of nicotine dependence | CPT/HCPCS: 99214 ==

== ENCOUNTER → 2023-02-19 11:30 | Outpatient (BNVA) | payer MEDICAID, SELFPAY | PROVIDERS: PCP Nurse Practitioner Family; Visit Provider Podiatrist Foot & Ankle Surgery | DX: B35.1 Tinea unguium (principal); L84 Corns and callosities; E11.9 Type 2 diabetes mellitus without complications; Z79.84 Long term (current) use of oral hypoglycemic drugs | CPT/HCPCS: 11721 ==

== ENCOUNTER → 2023-03-19 08:50 | Outpatient (BNVA) | payer MEDICAID, SELFPAY | PROVIDERS: PCP Nurse Practitioner Family; Visit Provider Otolaryngology | DX: J39.2 Other diseases of pharynx (principal); E66.01 Morbid (severe) obesity due to excess calories; Z68.42 Body mass index [BMI] 45.0-49.9, adult | CPT/HCPCS: 31575; 99203; 99204 ==

== ENCOUNTER → 2023-05-07 10:59 | Outpatient (BNVA) | payer MEDICAID, SELFPAY | PROVIDERS: PCP Nurse Practitioner Family; Visit Provider Podiatrist Foot & Ankle Surgery | DX: E11.8 Type 2 diabetes mellitus with unspecified complications (principal); B35.1 Tinea unguium; Z79.84 Long term (current) use of oral hypoglycemic drugs | CPT/HCPCS: 99213 ==

== ENCOUNTER 2023-06-26 13:05 | Outpatient (CLI) | payer MEDICAID, SELFPAY ==
--- NOTE | 2023-06-26 13:00 | MM_ITS ---
WS: [id number] BILATERAL 3D TOMOSYNTHESIS DIGITAL SCREENING MAMMOGRAPHY WITH CAD CLINICAL INFORMATION: SCREENING HISTORY: Screening mammogram. No current complaints. COMPARISON: 2021 TECHNIQUE: Bilateral CC and MLO views. FINDINGS: Scattered fibroglandular densities bilaterally. No suspicious focal mass, asymmetry, calcifications, or architectural distortion. No evidence of malignancy. Incidental punctate calcifications. IMPRESSION: MM/[place] [id number] BI-RADS: 2-Benign FOLLOW UP: 1 Year Follow-up Recommend return to annual screening mammography.
== END 2023-06-26 13:06 | disposition home or self-care (01) ==
LOC: MOBLMAM 13:11
PROVIDERS: PCP Family Medicine; Visit Provider Family Medicine
DX: Z12.31 Encounter for screening mammogram for malignant neoplasm of breast (principal)
CPT/HCPCS: 77063; 77067

== ENCOUNTER → 2023-09-10 14:59 | Outpatient (BNVA) | payer MEDICAID, SELFPAY | PROVIDERS: PCP Family Medicine; Visit Provider Internal Medicine | DX: R07.9 Chest pain, unspecified (principal); E78.5 Hyperlipidemia, unspecified; E66.01 Morbid (severe) obesity due to excess calories; Z68.42 Body mass index [BMI] 45.0-49.9, adult; Z87.891 Personal history of nicotine dependence | CPT/HCPCS: 99214 ==

== ENCOUNTER → 2023-09-21 12:47 | Outpatient (BNVA) | payer MEDICAID, SELFPAY | PROVIDERS: PCP Family Medicine; Visit Provider Specialist | DX: G56.23 Lesion of ulnar nerve, bilateral upper limbs (principal); G62.89 Other specified polyneuropathies | CPT/HCPCS: 95911 ==

== ENCOUNTER → 2023-11-05 12:59 | Outpatient (BNVA) | payer MEDICAID, SELFPAY | PROVIDERS: PCP Family Medicine; Visit Provider Podiatrist Foot & Ankle Surgery | DX: B35.1 Tinea unguium (principal); M21.379 Foot drop, unspecified foot; E11.69 Type 2 diabetes mellitus with other specified complication; Z79.84 Long term (current) use of oral hypoglycemic drugs | CPT/HCPCS: 99213 ==

== ENCOUNTER → 2023-12-19 14:38 | Outpatient (BNVA) | payer MEDICAID, SELFPAY | PROVIDERS: PCP Family Medicine; Referring Provider Nurse Practitioner Family; Visit Provider Specialist | DX: M77.11 Lateral epicondylitis, right elbow | CPT/HCPCS: 73080; 99204 ==

== ENCOUNTER → 2024-02-01 09:32 | Outpatient (BNVA) | payer MEDICAID, SELFPAY | PROVIDERS: PCP Family Medicine; Visit Provider Surgery | DX: Z12.11 Encounter for screening for malignant neoplasm of colon (principal) | CPT/HCPCS: 99024; 99204 ==

== ENCOUNTER 2024-03-26 11:11 | Day surgery (SDC) | payer MEDICAID, SELFPAY ==
[2024-03-26 11:37] VITALS: BP 120/80; PULSE 70; RESP 18; TEMP 36.3; O2SAT 98; BMI 49.4
[2024-03-26 11:44] LABS: OR HCG Qualitative Urine Negative (Negative)
[2024-03-26] MEDS: sodium chloride 0.9% 1,000 ML 30 ML IV (11:54)
--- NOTE | 2024-03-26 12:54 | P.ANESASSM_ITS ---
Pre-Anesthetic Assessment Height/Weight: Height 5 ft 2 in Weight 270 lb Temp Pulse Resp BP Pulse Ox O2 Del Method 97.3 F L 70 18 120/80 98 Room Air 03/26/24 11:37 03/26/24 11:37 03/26/24 11:37 03/26/24 11:37 03/26/24 11:37 03/26/24 11:37 Preop Diagnosis: GI screening Operation Date: 03/26/24 12:30 Proposed Procedures p Colonoscopy - 72171 , G0121 , Z12.11(Not Applicable) - James Denny, DO Was Beta Sherif taken within 24 hours: N/A Was Clonidine taken within 24 hours: N/A Last intake: Intake Last Liquid Date 03/25/24 Last Liquid Time 22:30 Last Solid Date 03/24/24 Last Solid Time 17:30 Social No alcohol and No tobacco Exam alert, oriented x 3, clear to auscultation bilaterally and regular rate & rhythm Airway Submandibular: within normal limits Cervical ROM: within normal limits Mallampati: Class IV Dentition: full Anesthetic Plan ASA status: 3 Anesthesia: MAC Other: No prior issues with anesthesia NPO since yesterday Takes daily Lasix Diabetes, on metformin Denies BRAYAN BMI 49 test negative Plan for MAC anesthesia Medications/Allergies Home Medications Medication Instructions Recorded Confirmed Last Taken Type furosemide 20 mg tablet (Lasix) 20 mg PO QAM #30 tabs 12/14/19 03/24/24 03/26/24 Rx fluoxetine 20 mg capsule 20 mg PO DAILY 02/02/20 03/24/24 03/26/24 History cetirizine 10 mg tablet (Zyrtec) 10 mg PO DAILY #30 tabs 03/04/20 03/24/24 03/26/24 Rx simvastatin 40 mg tablet 40 mg PO DAILY #30 tabs 03/04/20 03/24/24 03/26/24 Rx Non articulating AFO to right #1 ea 06/14/22 02/01/24 Unknown Rx Non articulating AFO modification #1 ea 07/17/22 02/01/24 Unknown Rx metformin 500 mg tablet,extended 500 mg PO DAILY 07/25/22 03/24/24 03/24/24 History release 24 hr magnesium oxide 400 mg PO .HS 01/23/23 03/24/24 03/25/24 History garlic 500 mg capsule 500 mg PO DAILY 02/19/23 03/24/24 03/26/24 History hydrocortisone 1 % topical cream 1 applic topical TID PRN skin 02/19/23 03/24/24 3 Months Ago Rx irritation #28.4 grams ~12/23/23 nystatin 100,000 unit/gram topical 100,000 unit topical DAILY PRN 03/24/24 03/24/24 03/24/24 History powder (Nystop) Itching Allergies Allergy/AdvReac Type Severity Reaction Status Date / Time phenytoin [From Dilantin] Allergy rash Verified 03/24/24 13:53 Sulfa (Sulfonamide Allergy rash Verified 03/24/24 13:53 Antibiotics) venom-wasp Allergy Swelling Verified 03/24/24 13:53 Current Medications Generic Name Dose Route Start Last Admin Trade Name Freq PRN Reason Stop Dose Admin Sodium Chloride 1,000 mls @ 30 mls/hr 03/26/24 11:15 03/26/24 11:54 Sodium Chloride 0.9% IV 03/27/24 11:14 30 mls/hr .Q24H NISREEN Administration PFSH Anesthesia Medical History Psychiatric care Right arm pain Epilepsy Hyperlipidemia History of gestational diabetes Moderate episode of recurrent major depressive disorder Morbid (severe) obesity due to excess calories Metabolic syndrome Vitamin D insufficiency Situational anxiety Borderline intellectual disability Surgical History S/P repeat low transverse (05/27/18) with BTL. [place] [facility] [place] S/P repeat low transverse (~2004) S/P primary low transverse (~1999) History of ankle surgery (07/30/14) Open reduction and internal fixation left bimalleolar ankle fracture. [place] [facility] [place] H/O left wrist surgery S/P foot surgery, right (~1987) History of tubal ligation (05/27/18) Performed at time of section. By Dr. Torres in [place], [place] History of cholecystectomy (~2009) Laparoscopic History of tonsillectomy and adenoidectomy Family History Grandmother Hypertension Maternal Father Diabetes Mother Breast cancer Social History Smoking and tobacco/nicotine status: former use of tobacco/nicotine Alcohol intake: current Alcohol intake frequency: few times a month Substance/Drug Use: never Do you think of yourself as: Straight/Heterosexual Female Reproductive History Date of last menstrual period: 02/13/24 Data Anesthesia Cardiac Studies: Echocardiogram 08/07/22 Sestamibi Stress Test (Cardiology) 05/31
--- NOTE | 2024-03-26 13:16 | P.HP_ITS ---
Providers/Chief Complaint Primary Care Provider: Sylwia Abraham Chief Complaint: Z12.11 History of Present Illness Glenda Maravilla is a 48 year old female Review of Systems General: Reports: 10 or more systems reviewed and unremarkable except in HPI and below Medications/Allergies Home Medications Medication Instructions Recorded Confirmed Last Taken Type furosemide 20 mg tablet (Lasix) 20 mg PO QAM #30 tabs 12/14/19 03/24/24 03/26/24 Rx fluoxetine 20 mg capsule 20 mg PO DAILY 02/02/20 03/24/24 03/26/24 History cetirizine 10 mg tablet (Zyrtec) 10 mg PO DAILY #30 tabs 03/04/20 03/24/24 03/26/24 Rx simvastatin 40 mg tablet 40 mg PO DAILY #30 tabs 03/04/20 03/24/24 03/26/24 Rx Non articulating AFO to right #1 ea 06/14/22 02/01/24 Unknown Rx Non articulating AFO modification #1 ea 07/17/22 02/01/24 Unknown Rx metformin 500 mg tablet,extended 500 mg PO DAILY 07/25/22 03/24/24 03/24/24 History release 24 hr magnesium oxide 400 mg PO .HS 01/23/23 03/24/24 03/25/24 History garlic 500 mg capsule 500 mg PO DAILY 02/19/23 03/24/24 03/26/24 History hydrocortisone 1 % topical cream 1 applic topical TID PRN skin 02/19/23 03/24/24 3 Months Ago Rx irritation #28.4 grams ~12/23/23 nystatin 100,000 unit/gram topical 100,000 unit topical DAILY PRN 03/24/24 03/24/24 03/24/24 History powder (Nystop) Itching Allergies Allergy/AdvReac Type Severity Reaction Status Date / Time phenytoin [From Dilantin] Allergy rash Verified 03/24/24 13:53 Sulfa (Sulfonamide Allergy rash Verified 03/24/24 13:53 Antibiotics) venom-wasp Allergy Swelling Verified 03/24/24 13:53 PFSH Acute PFSH: Medical History Psychiatric care Right arm pain Epilepsy Hyperlipidemia History of gestational diabetes Moderate episode of recurrent major depressive disorder Morbid (severe) obesity due to excess calories Metabolic syndrome Vitamin D insufficiency Situational anxiety Borderline intellectual disability Surgical History S/P repeat low transverse (05/27/18) with BTL. Performed by Dr. Torres at [facility] [place] [place] S/P repeat low transverse (~2004) S/P primary low transverse (~1999) History of ankle surgery (07/30/14) Open reduction and internal fixation left bimalleolar ankle fracture. Performed by Dr. Turner at [facility] [place] [place] H/O left wrist surgery S/P foot surgery, right (~1987) History of tubal ligation (05/27/18) Performed at time of section. By Dr. Torres in [place], [place] History of cholecystectomy (~2009) Laparoscopic History of tonsillectomy and adenoidectomy Family History Grandmother Hypertension Maternal Father Diabetes Mother Breast cancer Social History Smoking and tobacco/nicotine status: former use of tobacco/nicotine Alcohol intake: current Alcohol intake frequency: few times a month Substance/Drug Use: never Do you think of yourself as: Straight/Heterosexual Female Reproductive History: Date of last menstrual period: 02/13/24 Vitals/I&O/Wt Last Vital Signs Temp 97.3 F L 03/26/24 11:37 Pulse 70 03/26/24 11:37 Resp 18 03/26/24 11:37 BP 120/80 03/26/24 11:37 Pulse Ox 98 03/26/24 11:37 O2 Del Method Room Air 03/26/24 11:37 Weight last 48 hrs Weight 270 lb A&P Assessment and plan (1) Colon cancer screening: Plan Colonoscopy Attestations Medical Necessity Statement*: Home Coding Level of Care Code Acute Code for Chg Fwd Diagnoses Colon cancer screening Z12.11
[2024-03-26 13:36] VITALS: BP 101/74; PULSE 65; RESP 18; TEMP 36.1; O2SAT 94
[2024-03-26 13:55] VITALS: BP 108/82; PULSE 664; RESP 17; O2SAT 95
--- NOTE | 2024-03-26 14:02 | ANE.PACU2 ---
Inpatient post-anesthesia follow up: Airway intact: Yes Vital signs: Temperature 97.0 F Pulse Rate 664 Respiratory Rate 17 Blood Pressure 108/82 Pulse Oximetry 95 Oxygen Delivery Me thod Room Air Oxygen Flow Rate Fraction of Inspir ed Oxygen Hydration adequate: Yes Nausea and vomiting: No Pain level: 1 Mental status: Baseline
[2024-03-27 00:41] LABS: Glucose Point of Care 101 mg/dL (70-110)
== END 2024-03-26 14:02 | disposition home or self-care (01) ==
PROVIDERS: Student in an Organized Health Care Education/Training Program; PCP Nurse Practitioner Family; Visit Provider Surgery
PROC: 0DJD8ZZ Inspection of Lower Intestinal Tract, Via Natural or Artificial Opening Endoscopic (ICD-10-PCS; CPT 45378; principal; 2024-03-26 12:30)
DX: Z12.11 Encounter for screening for malignant neoplasm of colon (principal); D12.5 Benign neoplasm of sigmoid colon; K62.1 Rectal polyp; E66.01 Morbid (severe) obesity due to excess calories; E78.5 Hyperlipidemia, unspecified; G40.909 Epilepsy, unspecified, not intractable, without status epilepticus; E11.9 Type 2 diabetes mellitus without complications; Z68.42 Body mass index [BMI] 45.0-49.9, adult; Z79.899 Other long term (current) drug therapy; Z88.2 Allergy status to sulfonamides; Z88.8 Allergy status to other drugs, medicaments and biological substances; Z87.891 Personal history of nicotine dependence
CPT/HCPCS: 36416; 45382; 45385; 81025; 82962; 88305; J2704; J7030

== ENCOUNTER → 2024-04-17 11:34 | Outpatient (BNVA) | payer MEDICAID, SELFPAY | PROVIDERS: PCP Nurse Practitioner Family; Visit Provider Surgery | DX: Z09 Encounter for follow-up examination after completed treatment for conditions other than malignant neoplasm (principal); D37.4 Neoplasm of uncertain behavior of colon | CPT/HCPCS: 99214 ==

== ENCOUNTER → 2024-06-19 15:43 | Outpatient (BNVA) | payer MEDICAID, SELFPAY | PROVIDERS: PCP Nurse Practitioner Family; Visit Provider Podiatrist Foot & Ankle Surgery | DX: E11.8 Type 2 diabetes mellitus with unspecified complications (principal); B35.1 Tinea unguium; M21.371 Foot drop, right foot; M21.372 Foot drop, left foot; Z79.84 Long term (current) use of oral hypoglycemic drugs | CPT/HCPCS: 11721; 99213 ==

== ENCOUNTER 2024-08-12 10:45 | Outpatient (CLI) | payer MEDICAID, SELFPAY ==
--- NOTE | 2024-08-12 10:40 | MM_ITS ---
WS: [id number] Bilateral screening 3D tomosynthesis digital mammogram, 08/12/2024 10:52 AM Clinical Data: SCREENING Comparison: 06/25/2023, 05/18/2022, 04/16/2020. Findings: No spiculated masses or clustered calcifications are seen. There are no secondary signs of carcinoma. MM/MM scr BI tomosynthesis [id number] Impression: Negative bilateral mammogram unchanged. Recommend annual screening mammograms. BIRADS: 1 - Negative. FOLLOW UP: 1 Year Follow-up DENSITY: There are scattered areas of fibroglandular density. The CAD bag checker was used
== END 2024-08-12 10:46 | disposition home or self-care (01) ==
LOC: MOBLMAM 10:49
PROVIDERS: PCP Nurse Practitioner Family; Visit Provider Nurse Practitioner Family
DX: Z12.31 Encounter for screening mammogram for malignant neoplasm of breast (principal); R92.323 Mammographic fibroglandular density, bilateral breasts
CPT/HCPCS: 77063; 77067

== ENCOUNTER → 2024-12-25 12:52 | Outpatient (BNVA) | payer MEDICAID, SELFPAY | PROVIDERS: PCP Nurse Practitioner Family; Visit Provider Podiatrist Foot & Ankle Surgery | DX: E11.42 Type 2 diabetes mellitus with diabetic polyneuropathy (principal); B35.1 Tinea unguium; M21.379 Foot drop, unspecified foot; G62.9 Polyneuropathy, unspecified; Z79.84 Long term (current) use of oral hypoglycemic drugs | CPT/HCPCS: 11721 ==

== ENCOUNTER 2024-12-29 13:27 | Outpatient (CLI) | payer MEDICAID, SELFPAY ==
--- NOTE | 2024-12-29 13:40 | XR_ITS ---
WS: [id number] Exam: XR knee RT 4V [id number] Date/Time of Exam: 12/29/2024 1:44 PM Reason For Exam: PAIN IN R KNEE No fracture noted. The joints are preserved. No joint effusion. Normal soft tissues. XR/XR knee RT 4V [id number] IMPRESSION: 1. Negative RIGHT knee. No change. Kellgren-Romario classification of 0.
== END 2024-12-29 13:28 | disposition home or self-care (01) ==
LOC: RAD 13:36
PROVIDERS: PCP Nurse Practitioner Family; Visit Provider Nurse Practitioner Family
DX: M25.561 Pain in right knee (principal)
CPT/HCPCS: 73564

== ENCOUNTER → 2025-02-24 13:05 | Outpatient (BNVA) | payer MEDICAID, SELFPAY | PROVIDERS: PCP Nurse Practitioner Family; Visit Provider Podiatrist Foot & Ankle Surgery | DX: E11.42 Type 2 diabetes mellitus with diabetic polyneuropathy (principal); B35.1 Tinea unguium; G62.9 Polyneuropathy, unspecified; M21.541 Acquired clubfoot, right foot; M21.371 Foot drop, right foot; Z79.84 Long term (current) use of oral hypoglycemic drugs | CPT/HCPCS: 11721; 99214 ==